=== PATIENT | female | born 2000 | race Caucasian/White ===

== ENCOUNTER 2019-12-01 08:23 | Emergency (ER) | payer OTHER, SELFPAY ==
--- NOTE | ~2019-12-01 | XR_ITS ---
EXAMINATION: XR foot LT min 3V DATE: 12/01/2019 09:21 INDICATION: Left foot pain and laceration TECHNIQUE: Dorsoplantar, lateral, and 2 oblique views of the left foot were obtained. COMPARISON: None. FINDINGS: There is no fracture, dislocation, or subluxation. The bones and joint spaces are normal. T here is plantar soft tissue swelling of the foot. No radiopaque foreign body is identified. IMPRESSION: 1. Plantar soft tissue swelling of the foot without acute osseous abnormality or radiopaque foreign b whitney. Reviewed, dictated and finalized at location A. IMPRESSION: 1. Plantar soft tissue swelling of the foot without acute osseous abnormality o r radiopaque foreign body.
[2019-12-01 08:31] VITALS: BP 99/43; PULSE 105; RESP 20; O2SAT 100
--- NOTE | 2019-12-01 08:55 | ED.LOWEXIN ---
HPI - Extremity Injury (Lower) General Chief Complaint: Extremity Injury, Lower <Ynes Chatterjee MD - Last Filed: 12/01/19 18:42> Stated Complaint: foot laceration <Ynes Chatterjee MD - Last Filed: 12/01/19 18:42> Time Seen by Provider: 12/01/19 08:48 <Ynes Chatterjee MD - Last Filed: 12/01/19 18:42> Source: patient and family <Dyllan Cox PA-C - Last Filed: 12/01/19 11:06> Mode of arrival: ambulatory <Dyllan Cox PA-C - Last Filed: 12/01/19 11:06> Limitations: no limitations <Dyllan Cox PA-C - Last Filed: 12/01/19 11:06> History of Present Illness HPI Narrative: Patient is a 19-year-old female who presents with laceration of the left foot that occurred this morning patient had a machete next to her bed stepped on the handle with the right foot causing the left foot to become lacerated on the plantar forefoot. Patient notes her tetanus is up-to-date patient notes moderate to severe pain worse with any touch or activity. Patient presents per private vehicle. Patient has not taken anything for her symptoms <Dyllan Cox PA-C - Last Filed: 12/01/19 11:06> Related Data Home Medications: Home Medications Medication Instructions Recorded Confirmed ferrous sulfate 325 mg PO DAILY 12/01/19 <Ynes Chatterjee MD - Last Filed: 12/01/19 18:42> Allergies/Adverse Reactions: Allergies Allergy/AdvReac Type Severity Reaction Status Date / Time No Known Allergies Allergy Verified 12/01/19 08:42 <Ynes Chatterjee MD - Last Filed: 12/01/19 18:42> Review of Systems Review of Systems: All systems reviewed & are unremarkable except as noted in HPI and below <Dyllan Cox PA-C - Last Filed: 12/01/19 11:06> PMFSH Social History Social History: Social History (Updated 12/01/19 @ 11:02 by Dyllan Cox PA-C) Smoking status: Never smoker Gender identity (if verbalized by the patient): Female <Ynes Chatterjee MD - Last Filed: 12/01/19 18:42> Exam Narrative: Exam Narrative: GENERAL: Well-appearing, well-nourished, and in no acute distress. HEAD: Normocephalic, atraumatic. EYES: PERRLA and EOMI. ENT: Nares clear, no rhinorrhea or epistaxis. Mucous membranes moist. EXTREMITIES: Normal range of motion. No edema. SKIN: Warm, dry, no rash. Patient with laceration measuring 4 cm extending along the forefoot of the left foot in between the first and second digits appears to extend into the subcutaneous tissues NEURO: No focal deficits. Alert and oriented x3. Neurovascularly intact. Motor and sensory intact and symmetrical in the foot PSYCH: Normal mood and affect. <Dyllan Cox PA-C - Last Filed: 12/01/19 11:06> Course Course Emergency Course: Patient in the emergency room will sign refusal documentation refused to have her wound closed patient notes that she cannot lay still and was too anxious about the wound closure was given Valium however still refused to have the procedure performed noting that she would rather have delayed healing and does not wish to have closure at this time it was explained that and leaving she risks delayed healing infection or permanent disability has a possibility and will sign refusal documentation. Patient's wound was cleaned with a Betadine with antibiotic ointment nonadhesive 4 x 4 and Coban placed post procedure <Dyllan Cox PA-C - Last Filed: 12/01/19 11:06> PROPERTIES SUPERVISOR/PA Physician Supervision For this patient encounter, I reviewed the PROPERTIES SUPERVISOR or PA documentation, treatment plan, and medical decision making; and I had [id number] time with this patient. I initially saw patient. She was given valium for anxiety of getting laceration repair. Afterwards, when PA went to repair wound she refused laceration repair. <Ynes Chatterjee MD - Last Filed: 12/01/19 18:42> Vital Signs Vital signs: Vital Signs Pulse Rate 105 H 12/01/19 08:31 Respiratory Rate 20 12/01/19 08:31
[2019-12-01] MEDS: diazePAM 5 MG TABLET PO (09:32)
[2019-12-01] MEDS: LIDOCAINE HCL 1% LOCAL INJ 20 ML VIAL INFILTRATE (11:18)
== END 2019-12-01 11:21 | disposition home or self-care (01) ==
PROVIDERS: Emergency Provider General Practice
DX: S91.312A Laceration without foreign body, left foot, initial encounter (principal); W27.8XXA Contact with other nonpowered hand tool, initial encounter
CPT/HCPCS: 73630; 99283; A9270

== ENCOUNTER 2020-12-14 06:25 | Inpatient (IN) | payer OTHER, SELFPAY ==
[2020-12-14] VITALS (214 sets, daily range): BP systolic 59–147; BP diastolic 31–106; PULSE 29–154; RESP 16; TEMP 36.2–37.5; O2SAT 77–100; BMI 41.5
[2020-12-14 07:12] LABS: Basophils Absolute Auto 0.1 K/mm3 (0.0-0.1); Basophils Percent Auto 0.5 % (0.2-1.2); Eosinophils Absolute Auto 0.1 K/mm3 (0-0.3); Eosinophils Percent Auto 0.8 % (0-4.4); Hematocrit 41.3 % (37.0-47.0); Hemoglobin 13.8 g/dL (12.0-15.0); Immature Granulocyte Absolute 0.17 K/mm3 (0.00-0.031); Immature Granulocyte Percent A 1.5 % (0-0.5); Lymphocytes Absolute Auto 1.83 K/mm3 (0.9-3.2); Lymphocytes Percent Auto 16.1 % (18.3-44.2); Mean Corpuscular HGB Conc 33.4 g/dl (32-36); Mean Corpuscular Volume 83.8 fl (80-100); Mean Platelet Volume 11.9 fl (7.4-10.4); Monocytes Percent Auto 8.5 % (2.6-8.5); Neutrophils Absolute Auto 8.2 K/mm3 (1.3-6.7); Neutrophils Percent Auto 72.6 % (45.5-73.1); Platelet Count Result 181 k/mm3 (150-375); Red Blood Count 4.93 M/mm3 (4.2-5.4); Red Cell Distribution Width 13.6 % (11.5-14.5); White Blood Count 11.4 K/mm3 (4.5-10.0)
[2020-12-14] MEDS: LACTATED RINGERS 1,000 ML 125 ML IV CONT ×4 (07:12→16:53)
[2020-12-14] MEDS: AMPICILLIN 2 GM/NS 100 ML 2 GM/100 ML BAG IVPB (07:13)
[2020-12-14] MEDS: OXYTOCIN 30 UNITS/NS 500 ML 30 UNITS/500 ML BAG 6 UNITS IV CONT (07:16)
--- NOTE | 2020-12-14 07:27 | WPDOBADMIT ---
Obstetrics - Admit Note Admission Note: record reviewed. No pertinent additions to the history and/or any subsequent changes in the physical findings that are not consistent with the expected course of the were found. MIL term gestation, SVE /-2, AROM small amount of clear odorless fluid Additions to the history and/or subsequent changes in the physical findings follow. None.
--- NOTE | 2020-12-14 09:02 | WPDANESEPP ---
Anes - Eval Pre Procedure Procedure: labor pain management Date/Time: 12/14/20 09:02 Surgeon: Mariann Preop Diagnosis: Pain during labor Pre Op Diagnosis: induction of labor Patient Data Age: 20 Gender: F Height: Weight: Last Vital Signs Temp 98 F 12/14/20 07:30 Pulse 100 12/14/20 09:00 BP 120/76 12/14/20 09:00 Allergies Allergy/AdvReac Type Severity Reaction Status Date / Time No Known Allergies Allergy Verified 12/01/19 08:42 Laboratory Tests 12/14/20 12/14/20 12/14/20 07:06 07:06 07:06 WBC 11.4 K/mm3 H K/mm3 (4.5-10.0) RBC 4.93 M/mm3 M/mm3 (4.2-5.4) Hgb 13.8 g/dL g/dL (12.0-15.0) Hct 41.3 % % (37.0-47.0) MCV 83.8 fl fl (80-100) MCH 28.0 pg pg (26-34) MCHC 33.4 g/dl g/dl (32-36) RDW 13.6 % % (11.5-14.5) Plt Count 181 k/mm3 k/mm3 (150-375) MPV 11.9 fl H fl (7.4-10.4) Immature Gran % (Auto) 1.5 % H % (0-0.5) Neut % (Auto) 72.6 % % (45.5-73.1) Lymph % (Auto) 16.1 % L % (18.3-44.2) [place] % (Auto) 8.5 % % (2.6-8.5) Eos % (Auto) 0.8 % % (0-4.4) Baso % (Auto) 0.5 % % (0.2-1.2) Lymph # (Auto) 1.83 K/mm3 K/mm3 (0.9-3.2) [place] # (Auto) 1.0 K/mm3 H K/mm3 (0.1-0.6) Eos # (Auto) 0.1 K/mm3 K/mm3 (0-0.3) Baso # (Auto) 0.1 K/mm3 K/mm3 (0.0-0.1) Abs Immat Gran (auto) 0.17 K/mm3 H K/mm3 (0.00-0.031) Absolute Neuts (auto) 8.2 K/mm3 H K/mm3 (1.3-6.7) Absolute Nucleated RBC 0.0 K/mm3 K/mm3 (0.0-0.012) Nucleated RBC % 0.0 % % (0.0-0.2) Urine Opiates Screen Urine Methadone Screen Ur Barbiturates Screen Ur Phencyclidine Scrn Ur Amphetamine Screen U Benzodiazepines Scrn Urine Cocaine Screen U Cannabinoids Screen RPR Pending Blood Type B Positive Antibody Screen Negative 12/14/20 07:45 WBC RBC Hgb Hct MCV MCH MCHC RDW Plt Count MPV Immature Gran % (Auto) Neut % (Auto) Lymph % (Auto) [place] % (Auto) Eos % (Auto) Baso % (Auto) Lymph # (Auto) [place] # (Auto) Eos # (Auto) Baso # (Auto) Abs Immat Gran (auto) Absolute Neuts (auto) Absolute Nucleated RBC Nucleated RBC % Urine Opiates Screen Pending Urine Methadone Screen Pending Ur Barbiturates Screen Pending Ur Phencyclidine Scrn Pending Ur Amphetamine Screen Pending U Benzodiazepines Scrn Pending Urine Cocaine Screen Pending U Cannabinoids Screen Pending RPR Blood Type Antibody Screen : gestational age (edc 12/14/20) HCG: positive Patient hx anesthesia problems: none Family hx anesthesia problems: none PMFSH Past Medical History Medical History (Updated 12/14/20 @ 09:00 by Jazzy Francois CRNA) Substance abuse Family History Family History (Updated 11/26/20 @ 14:57 by Tracie Marshall RN) Grandparent Lung cancer Brain cancer Social History Social History (Updated 12/14/20 @ 08:58 by Jazzy Francois CRNA) Social History: THC use Smoking status: Never smoker Substance use: former Last use: LAST TIME 2 WEEKS AGO Gender identity (if verbalized by the patient): Female Spiritual care concerns: No Exam Day of Procedure 12/14/20 09:02
--- NOTE | 2020-12-14 09:02 | LDADM ---
This patient, Eron Chambers, was admitted to Labor/Delivery/Recovery 104 on 12/14/20 at 06:25. Plans for labor, pain management and were discussed with patient. Patient/family oriented to hospital policies and general routines including ID bracelet, bed and alarms, visiting hours, pain management, procedures, bathroom and other care routines, personal items, smoking policy, room service/diet and guest tray routines, infant security routines, and visiting hours. Patient/Family are encouraged to report perceived risks to care and to ask questions if they do not understand what they are told or what they should do. See [facility]BI[facility] for further documentation.
[2020-12-14 09:22] LABS: Barbiturate Screen Urine Negative (Negative); Benzodiazepines Screen Urine Negative (Negative)
[2020-12-14 09:26] LABS: Amphetamine Screen Urine Negative (Negative); Cannabinoid Screen Urine Positive (Negative); Cocaine Screen Urine Negative (Negative); Methadone Screen Urine Negative (Negative); Opiate Screen Urine Negative (Negative); Phencyclidine Screen Urine Negative (Negative)
[2020-12-14] MEDS: PHENYLEPHRINE 1,000 MCG/10 ML SYRINGE 100 MCG IV PUSH (10:53)
[2020-12-14] MEDS: AMPICILLIN 1 GM/NS 50 ML 1 GM/50 ML BAG IVPB ×3 (10:57→18:49)
[2020-12-14 11:20] LABS: Rapid Plasma Reagin Non-Reactive (NonReactive)
[2020-12-14] MEDS: ONDANSETRON INJ 4 MG/2 ML VIAL IV PUSH (16:53)
--- NOTE | 2020-12-14 20:46 | PM.OBPRVD ---
OB - Delivery Note Procedure Delivery date: 12/14/20 Procedure: vaginal delivery Intrapartal events: None Induction method: AROM and per pitocin protocol Delivery monitor: external FHT, external uterine and internal uterine Route of delivery: Laceration Description: Periurethral (right) Delivery repair: vicryl Specimen: No Quantitative Blood Loss (ml): 115 Anesthesia type: Local Disposition: floor [place] Baby Date of : 12/14/20 Time of : 20:28 Weeks of gestation at delivery: 40 Infant gender: Male Weight (pounds): 8 Weight (ounces): 1 presentation: vertex position: Left Occiput Anterior Placenta delivery description: Spontaneous cord vessel description: 3 Vessels, Nuchal Cord, Tight, Reduced, Clamped/Cut and Around Extremity x1 (tight) score one minute: 7 score five minutes: 9 Narrative: mother and baby in stable condition
[2020-12-14] MEDS: OXYTOCIN 30 UNITS/NS 500 ML 30 UNITS/500 ML BAG 125 UNITS IV CONT (21:05)
[2020-12-14] MEDS: BENZOCAINE 20% AER SPR (*SP) 56 GM CAN 1 SPRAY TOPICAL (21:44)
[2020-12-14] MEDS: WITCH HAZEL 40 PADS 1 PAD TOPICAL (21:44)
[2020-12-14] MEDS: IBUPROFEN 600 MG TABLET PO (21:44)
[2020-12-15 05:24] LABS: Hematocrit 34.8 % (37.0-47.0); Hemoglobin 11.5 g/dL (12.0-15.0)
[2020-12-15 07:30] VITALS: BP 111/58; PULSE 93; RESP 16; TEMP 37.4; O2SAT 98
--- NOTE | 2020-12-15 08:19 | PM.OBPNVD ---
OB - PN: Subj Subjective Date/time seen: 12/15/20 08:19 Patient comments: no complaints baby status: doing well OB - PN: Obj Data Labs CBC & Chem 7: 12/15/20 05:16 Labs: Laboratory Results - last 24 hr 12/14/20 12/14/20 12/14/20 07:06 07:06 07:45 Hgb Hct Urine Opiates Screen Negative Urine Methadone Screen Negative Ur Barbiturates Screen Negative Ur Phencyclidine Scrn Negative Ur Amphetamine Screen Negative U Benzodiazepines Scrn Negative Urine Cocaine Screen Negative U Cannabinoids Screen Positive A RPR Non-reactive Blood Type B Positive Antibody Screen Negative 12/15/20 05:16 Hgb 11.5 L Hct 34.8 L Urine Opiates Screen Urine Methadone Screen Ur Barbiturates Screen Ur Phencyclidine Scrn Ur Amphetamine Screen U Benzodiazepines Scrn Urine Cocaine Screen U Cannabinoids Screen RPR Blood Type Antibody Screen OB - PN A/P Plan day: 1 Plan: routine care Time Spent With Patient Time: Total time spent is greater than 50% in coordination of care (as documented) at patient's floor/unit and/or counseling patient: Time with patient: less than 15 minutes Review of Systems Review of Systems: All systems reviewed & are unremarkable except as noted in HPI and below Exam Narrative: Fundus firm and vaginal flow controlled. No lower ext redness, warmth, or edema. Negative homans. Const: General: comfortable Chest: Breast/axilla inspection: normal inspection of the breasts Resp: Effort & Inspection: normal respiratory effort Cardio: Rate: regular rate GI: GI Palp: Yes Soft to palpation Psych: Appearance: grossly normal Affect: normal affect Attitude: cooperative Thought content: Yes Normal thought content present Judgement: Good judgement present (Psych)
[2020-12-15] MEDS: MULTIVIT/MIN/PREN/FOL AC/IRON TABLET 1 TAB PO (09:33)
[2020-12-15] MEDS: IBUPROFEN 600 MG TABLET PO (09:33)
--- NOTE | 2020-12-15 09:51 | WPDANLDPN2 ---
Anes-Prog Note L&D Date/Time: 12/15/20 09:51 Comfortable throughout: labor Neuraxial method: epidural Epidural/Spinal procedure site: clean & non-tender Neuro status: Neuro function grossly intact. Cardiovascular status: normal Respiratory status: normal Airway patency: baseline Mental status: baseline Post-Op hydration status: normal Vital Signs: Last Vital Signs Temp 37.4 C 12/15/20 07:30 Pulse 93 12/15/20 07:30 Resp 16 12/15/20 07:30 BP 111/58 L 12/15/20 07:30 Pulse Ox 98 12/15/20 07:30 Pain score (VAS): 3 I/O: Intake & Output 12/14/20 12/15/20 12/15/20 23:59 07:59 15:59 Intake Total 1050 Output Total 1208 Balance -158 Post-procedural complaints: none Patient feedback: Patient satisfied with anesthetic care.
[2020-12-15] MEDS: ACETAMINOPHEN 325 MG TABLET 650 MG PO (10:34)
--- NOTE | 2020-12-15 11:15 | PC.NURSE ---
Mother called out for assist with feeding. Mother reports she is using a nipple shield for all feedings. is unable to maintain latch without shield. Discussed nipple shield precautions and possible complications. Instructions given on application and cleaning of shield. Patient able to return demonstration on proper application of shield. Discussed the need to initiate pumping if infant continues to nurse with the shield. Patient verbalizes understanding. Infant is able to freely thrust tongue past gum ridge and flange both lips. Skin is intact on both nipples, no redness and bruising noted. Mother has infant to breast upon entering. Reviewed feeding cues, frequencies, duration of feedings, feeding elimination flow sheet, and signs of adequate intake. Reviewed positioning/alignment in cross cradle, holding breast in ?U? hold and guided asymmetrical latch on. Discussed rational for each. Infant was latched slightly shallow, demonstrated how to adjust latch more deeply while feeding. Reviewed signs of a correct latch, effective nursing and suck swallow ratio. nursed eagerly, with steady draws and frequent swallowing noted. Reviewed the difference of effective vs ineffective nursing. Suggested mother stimulate while feeding to increase stimulation, increase intake and to assist with maintaining deep latch. would slip to shallow latch, mother reports tenderness. Demonstrated how to adjust latch more deeply while feeding. Mother reports she can feel change in latch and has no tenderness. Nipple care reviewed of lanolin after feedings, warm compresses as needed.
[2020-12-15 12:38] VITALS: BP 136/89; PULSE 101; RESP 18; TEMP 37; O2SAT 100
--- NOTE | 2020-12-15 14:48 | PC.NURSE ---
Breast pump provided due to nipple shield use. Instructions given on breast pump care and usage, pumping schedule, nipple care, and collection and storage of breast milk. Encouraged [id number], breast massage and manual expression to stimulate supply. Assessed patient for correct flange size, placement and draw. Patient verbalizes and demonstrates understanding of instructions.
[2020-12-15 16:30] VITALS: BP 122/82; PULSE 81; RESP 18; TEMP 36.1
[2020-12-15 20:40] VITALS: BP 123/81; PULSE 86; RESP 16; TEMP 37.1
[2020-12-16] MEDS: IBUPROFEN 600 MG TABLET PO (05:35)
--- NOTE | 2020-12-16 07:34 | PM.OBPNVD ---
OB - PN: Subj Subjective Date/time seen: 12/16/20 07:34 Patient comments: no complaints baby status: doing well OB - PN: Obj Data Labs CBC & Chem 7: 12/15/20 05:16 OB - PN A/P Plan day: 2 Plan: routine care and discharge home Time Spent With Patient Time: Total time spent is greater than 50% in coordination of care (as documented) at patient's floor/unit and/or counseling patient: Review of Systems Review of Systems: All systems reviewed & are unremarkable except as noted in HPI and below Exam Const: General: cooperative Nutritional Appearance: average body habitus Limitations: no limitations Psych: Affect: normal affect Thought process: Normal thought process present Thought content: Yes Normal thought content present Judgement: Good judgement present (Psych)
--- NOTE | 2020-12-16 07:36 | PM.OBDSVD ---
DS: Admitting Diagnosis Admitting Diagnosis JAKE, 40 wks gestation OB - DS: Summary OB Procedures : None OB Procedures Intrapartum: Spontaneous Vag Delivery OB Procedures: : None Time Spent with Patient Time attestation: Total time spent providing and/or coordinating discharge services: Discharge Plan Discharge Attending physician on discharge: Zia Waite Discharging Clinician: Ashley Hassan Patient Disposition: Home, Self-Care Activity: pelvic rest Diet: regular Patient Instructions: Antibiotic Form Stand Alone Forms: General Discharge Information Follow-up/Referrals: Ashley Hassan CNM [Certified Nurse Clinical Information Systems Director] - 4 Weeks Discharge Medications: New ibuprofen 600 mg Tablet 600 mg PO Q6H PRN (Reason: Cramping) Qty: 30 RF: 0 Continued 28-800 mg-mcg Tablet 1 tablet PO DAILY RF: 0 Date of admission: 12/14/20 06:25 Primary Care Provider: PHYSICIAN,SECURITY CONTROL ASSESSOR Admitting Provider: Zia Waite Attending physician on admission: Zia Waite Condition: Stable
[2020-12-16 07:55] VITALS: BP 122/72; PULSE 88; RESP 16; TEMP 36.6; O2SAT 98
--- NOTE | 2020-12-16 08:45 | PC.NURSE ---
Mother is able to independently latch with appropriate positioning/alignment without nipple shield. is awake and eagerly feeding this observation. nursed eagerly, with steady draws and frequent swallowing noted. Reviewed signs of a correct latch, effective nursing and suck swallow ratio. Infant was able to maintain latch without discomfort to mother. Nipple care reviewed. Advised mother as long as is latching and nursing effectively she does not need to pump after each feeding. Mother does have a double electric pump for home use Mother states she feels confident to continue continue at home. Discussed if infant is unable to latch to return to shield use and initiate pumping. Stressed to soften breast before feeding when breast are firm and engorged. Reviewed transition to breast milk, signs of adequate intake, and engorgement/relief. Instructed to call ICP if intake/output less than required. Reviewed regular medications mother is taking. Information provided per [place]. Reviewed community resources on the [facility] website and in the Mom/Baby guide. Information on outpatient services provided. Mother has no further questions at this time.
[2020-12-16] MEDS: ACETAMINOPHEN 325 MG TABLET 650 MG PO (08:58)
[2020-12-16] MEDS: MULTIVIT/MIN/PREN/FOL AC/IRON TABLET 1 TAB PO (08:59)
[2020-12-16] MEDS: DOCUSATE SODIUM 100 MG CAPSULE PO (08:59)
== END 2020-12-16 12:25 | disposition home or self-care (01) | DRG 560 ==
LOC: ANHLDR 06:29 → ANHOB2 23:23
PROVIDERS: Advanced Practice Midwife; Admitting Provider Obstetrics & Gynecology; Visit Provider Obstetrics & Gynecology
DX: O76 Abnormality in fetal heart rate and rhythm complicating labor and delivery (principal); O71.82 Other specified trauma to perineum and vulva; Z3A.40 40 weeks gestation of pregnancy; Z37.0 Single live birth; O69.1XX0 Labor and delivery complicated by cord around neck, with compression, not applicable or unspecified; O99.824 Streptococcus B carrier state complicating childbirth
CPT/HCPCS: 36415; 80307; 85014; 85018; 85025; 86592; 86850; 86900; 86901; A9270; J0290; J2370; J2405; J2590; J2795; J7120